=== PATIENT | male | born 1995 | race Caucasian/White ===

== ENCOUNTER → 2017-04-30 | Outpatient (CLI) | payer BC ==
[~2017-04-30] MED LIST: NO HOME MEDICATIONS
== END ==
LOC: COL.RAD 07:38
DX: R10.10 Upper abdominal pain, unspecified (principal); R11.0 Nausea
CPT/HCPCS: A9541

== ENCOUNTER 2019-06-11 23:22 | Emergency (ER) | payer BC ==
[~2019-06-11] VITALS: Ht 170.2 cm; Wt 54.5 kg
[2019-06-11 23:35] VITALS: TEMP 98.5
[2019-06-12 00:21] LABS: ALANINE AMINOTRANSFERASE 10 U/L (21-72); ALBUMIN 4.7 gm/dL (3.5-5.0); ALKALINE PHOSPHATASE 72 U/L (50-136); ANION GAP 13 mmol/L (7-16); AST,SGOT 22 U/L (15-37); BILIRUBIN,TOTAL 0.4 mg/dL (0.0-1.0); BLOOD UREA NITROGEN 18 mg/dL (9-20); CALCIUM 9.7 mg/dL (8.4-10.2); CARBON DIOXIDE 22 mmol/L (22-30); CHLORIDE 104 mmol/L (98-107); CREATININE, serum 0.86 (0.66-1.25); GLUCOSE 92 mg/dL (74-106); LIPASE 73 U/L (23-300); POTASSIUM 3.7 mmol/L (3.4-5.0); SODIUM 138 mmol/L (137-145); TOTAL PROTEIN 8.1 gm/dL (6.4-8.2)
[2019-06-12 00:47] LABS: BASO # 0.1 (0.0-0.2); BASO % 0.7 % (0.0-2.0); EOS # 0.1 (0.0-0.7); EOS % 0.9 % (0-4.0); GRAN # 5.7 (1.4-6.5); GRAN % 64.1 % (42.2-75.2); HEMATOCRIT 39.5 % (42.0-52.0); LYMPH # 1.9 (1.2-3.4); MEAN CELL VOLUME 93 fl (80.0-100.0); MEAN CORPUSCULAR HEMOGLOBIN 33 pg (27.0-31.0); MEAN CORPUSCULAR HGB CONC 35 g/dl (33.0-37.0); MEAN PLATELET VOLUME 9.1 fl (7.4-10.4); MONO # 1.2 (0.1-0.6); PLATELET COUNT 232 K/mm3 (130-400); RED BLOOD COUNT 4.26 M/mm3 (4.20-5.60); REDCELL DISTRIBUTION WIDTH-CV 11.6 % (11.5-14.5)
[2019-06-12 00:49] LABS: TROPONIN-I < 0.012 ng/mL (0.000-0.035)
[2019-06-12 04:37] VITALS: BP 105/63; PULSE 97
== END 2019-06-12 04:32 | disposition home or self-care (01) ==
LOC: COL.ER 23:22
PROVIDERS: Emergency Medicine
DX: F41.9 Anxiety disorder, unspecified (principal)
CPT/HCPCS: J1885; J2060; J7030

== ENCOUNTER → 2019-06-18 | Outpatient (CLI) | payer BC | LOC: COL.VAS 13:28 | DX: R07.9 Chest pain, unspecified (principal) ==

== ENCOUNTER → 2019-07-09 | Outpatient (CLI) | payer BC | LOC: COL.CARD 07-06 11:30 | DX: R07.9 Chest pain, unspecified (principal); R42 Dizziness and giddiness ==

== ENCOUNTER 2019-08-15 00:10 | Emergency (ER) | payer BC ==
[~2019-08-15] VITALS: Ht 170.2 cm; Wt 54.5 kg
[2019-08-15 00:19] VITALS: BP 119/61; TEMP 98.3
[2019-08-15 02:35] VITALS: PULSE 72
== END 2019-08-15 02:35 | disposition home or self-care (01) ==
LOC: COL.ER 00:10
DX: S01.81XA Laceration without foreign body of other part of head, initial encounter (principal); Z88.0 Allergy status to penicillin; W22.8XXA Striking against or struck by other objects, initial encounter; Y92.22 Religious institution as the place of occurrence of the external cause